=== PATIENT | male | born 1990 | race Caucasian/White ===

== ENCOUNTER 2016-09-28 14:49 | Emergency (ER) | payer OTHER ==
[2016-09-28 15:58] LABS: HEMOGLOBIN 15.5 gm/dl (14.0-17.5); RED BLOOD COUNT 4.92 M/UL (4.20-5.50); WHITE BLOOD COUNT 9.7 K/UL (4.5-11.0)
[2016-09-28 16:19] LABS: BUN/CREATININE RATIO 17 (0-10)
== END 2016-09-28 23:00 | disposition home or self-care (01) ==
LOC: ER1 14:49
PROVIDERS: Family Medicine
DX: S02.40EA Zygomatic fracture, right side, initial encounter for closed fracture (principal); S02.31XA Fracture of orbital floor, right side, initial encounter for closed fracture; S02.40CA Maxillary fracture, right side, initial encounter for closed fracture; S01.111A Laceration without foreign body of right eyelid and periocular area, initial encounter; S76.019A Strain of muscle, fascia and tendon of unspecified hip, initial encounter; S40.029A Contusion of unspecified upper arm, initial encounter; S00.211A Abrasion of right eyelid and periocular area, initial encounter; V29.9XXA Motorcycle rider (driver) (passenger) injured in unspecified traffic accident, initial encounter; Z23 Encounter for immunization; Y93.55 Activity, bike riding; Y92.410 Unspecified street and highway as the place of occurrence of the external cause
CPT/HCPCS: 36415; 70450; 70486; 72125; 73080; 73090; 73110; 73130; 80053; 81001; 85025; 90471; 90715; 96360; 96361; 99284; J7050; Q9962